=== PATIENT | male | born 1990 | race Caucasian/White ===

== ENCOUNTER 2018-06-05 17:15 | Emergency (ER) | payer MEDICAID ==
[~2018-06-05] VITALS: Ht 172.7 cm; Wt 83.0 kg
[2018-06-05 17:21] VITALS: Ht 172.7 cm; Wt 83.0 kg
[2018-06-05 18:54] LABS: BASOPHIL % 0.4 % (0-2); RED CELL DISTRIBUTION WIDTH 12.8 % (11.5-14.5)
[2018-06-05 19:10] LABS: CALCIUM 9.7 mg/dL (8.5-10.1); CARBON DIOXIDE 31.9 mmol/L (21-32); CHLORIDE SERUM 101 mmol/L (98-107); CREATININE SERUM 0.7 mg/dL (0.7-1.3); GFR1 > 60 mL/min; GLUCOSE SERUM 104 mg/dL (74-106); POTASSIUM SERUM 4.4 mmol/L (3.5-5.1); SODIUM SERUM 139 mmol/L (136-145)
[2018-06-05 19:14] LABS: ALBUMIN 4.8 g/dL (3.4-5.0); ALKALINE PHOSPHATASE 71 U/L (46-116); ALT/SGPT 53 U/L (16-63); AST/SGOT 37 U/L (15-37); BILIRUBIN TOTAL 0.4 mg/dL (0.20-1.00); LIPASE 322 IU/L (73-393)
[2018-06-05 19:18] LABS: TOTAL PROTEIN, SERUM 8.5 g/dL (6.4-8.2)
[2018-06-05 19:35] LABS: PLATELET COUNT 213 x10^3mcL (130-400)
[2018-06-05 20:34] VITALS: BP 137/84
== END 2018-06-05 20:34 | disposition home or self-care (01) ==
LOC: ED 17:15
PROVIDERS: Emergency Medicine
DX: K80.20 Calculus of gallbladder without cholecystitis without obstruction (principal); R03.0 Elevated blood-pressure reading, without diagnosis of hypertension; Z90.49 Acquired absence of other specified parts of digestive tract
CPT/HCPCS: J1885; J2405; J3490; J7030; Q0092

== ENCOUNTER 2018-10-25 16:55 | Emergency (ER) | payer MEDICAID ==
[~2018-10-25] VITALS: Ht 172.7 cm; Wt 96.6 kg
[2018-10-25 17:09] VITALS: Ht 172.7 cm; Wt 96.6 kg
[2018-10-25 18:45] VITALS: BP 120/82
== END 2018-10-25 18:45 | disposition home or self-care (01) ==
LOC: ED 16:55
DX: S29.011A Strain of muscle and tendon of front wall of thorax, initial encounter (principal); Z98.890 Other specified postprocedural states; V49.9XXA Car occupant (driver) (passenger) injured in unspecified traffic accident, initial encounter; Y93.I9 Activity, other involving external motion; Y92.413 State road as the place of occurrence of the external cause; Y99.8 Other external cause status
CPT/HCPCS: J1885

== ENCOUNTER 2018-12-08 12:22 | Emergency (ER) | payer MEDICAID ==
[~2018-12-08] VITALS: Ht 172.7 cm; Wt 80.7 kg
[2018-12-08 12:31] VITALS: Ht 172.7 cm; Wt 80.7 kg
[2018-12-08 13:34] LABS: BASOPHIL % 0.9 % (0-2); PLATELET COUNT 369 x10^3mcL (130-400); RED CELL DISTRIBUTION WIDTH 12.9 % (11.5-14.5)
[2018-12-08 13:49] LABS: microscopic required? NO
[2018-12-08 14:01] LABS: CALCIUM 9.6 mg/dL (8.5-10.1); CARBON DIOXIDE 24.7 mmol/L (21-32); CHLORIDE SERUM 104 mmol/L (98-107); CREATININE SERUM 0.8 mg/dL (0.7-1.3); GFR1 > 60 mL/min; GLUCOSE SERUM 100 mg/dL (74-106); POTASSIUM SERUM 3.8 mmol/L (3.5-5.1); SODIUM SERUM 145 mmol/L (136-145)
[2018-12-08 14:05] LABS: ALBUMIN 4.3 g/dL (3.4-5.0); ALKALINE PHOSPHATASE 72 U/L (46-116); ALT/SGPT 45 U/L (16-63); AST/SGOT 11 U/L (15-37); BILIRUBIN TOTAL 0.35 mg/dL (0.20-1.00); CHOLESTEROL 191 mg/dL (<200); HDL CHOLESTEROL 45 mg/dL (40-60); LIPASE 336 IU/L (73-393); TOTAL PROTEIN, SERUM 7.6 g/dL (6.4-8.2)
[2018-12-08 14:10] LABS: UA SPECIFIC GRAVITY 1.015 (1.005-1.035); urine erythrocyte NEGATIVE (NEGATIVE)
[2018-12-08 14:18] LABS: AMPHETAMINE QUAL UR NONE DETECTED (See below)
[2018-12-08 16:53] VITALS: BP 138/89
== END 2018-12-08 16:53 | disposition home or self-care (01) ==
LOC: ED 12:22
PROVIDERS: Emergency Medicine
DX: K80.70 Calculus of gallbladder and bile duct without cholecystitis without obstruction (principal); G40.909 Epilepsy, unspecified, not intractable, without status epilepticus; Z90.81 Acquired absence of spleen; Z98.890 Other specified postprocedural states
CPT/HCPCS: G0480; J1885; J3490; J7030; Q0092

== ENCOUNTER 2018-12-08 20:47 | Emergency (ER) | payer MEDICAID ==
[~2018-12-08] VITALS: Ht 172.7 cm; Wt 81.6 kg
[2018-12-08 21:17] VITALS: Ht 172.7 cm; Wt 81.6 kg
[2018-12-08 22:14] LABS: PLATELET COUNT 353 x10^3mcL (130-400); RED CELL DISTRIBUTION WIDTH 12.5 % (11.5-14.5)
[2018-12-08 22:15] LABS: BASOPHIL % 0 % (0-2)
[2018-12-08 22:43] LABS: CALCIUM 9.3 mg/dL (8.5-10.1); CARBON DIOXIDE 24.6 mmol/L (21-32); CHLORIDE SERUM 103 mmol/L (98-107); CREATININE SERUM 0.8 mg/dL (0.7-1.3); GFR1 > 60 mL/min; GLUCOSE SERUM 100 mg/dL (74-106); POTASSIUM SERUM 3.4 mmol/L (3.5-5.1); SODIUM SERUM 141 mmol/L (136-145)
[2018-12-08 22:48] LABS: ALBUMIN 4.2 g/dL (3.4-5.0); ALKALINE PHOSPHATASE 61 U/L (46-116); ALT/SGPT 42 U/L (16-63); AST/SGOT 11 U/L (15-37); BILIRUBIN TOTAL 0.46 mg/dL (0.20-1.00); LIPASE 249 IU/L (73-393); TOTAL PROTEIN, SERUM 7.2 g/dL (6.4-8.2)
[2018-12-09 00:46] VITALS: BP 122/68
== END 2018-12-09 01:51 | disposition short-term general hospital (02) ==
LOC: ED 20:47
PROVIDERS: Emergency Medicine
DX: K81.0 Acute cholecystitis (principal)
CPT/HCPCS: J2270; J2405; J2543; J7030

== ENCOUNTER 2018-12-12 23:37 | Emergency (ER) | payer MEDICAID ==
[~2018-12-12] VITALS: Ht 172.7 cm; Wt 81.2 kg
[2018-12-12 23:42] VITALS: Ht 172.7 cm; Wt 81.2 kg
[2018-12-13 00:45] VITALS: BP 144/91
== END 2018-12-13 00:45 | disposition home or self-care (01) ==
LOC: ED 23:37
DX: R10.84 Generalized abdominal pain (principal); R11.10 Vomiting, unspecified; Z90.49 Acquired absence of other specified parts of digestive tract; Z98.890 Other specified postprocedural states
CPT/HCPCS: J2270; Q0162

== ENCOUNTER 2019-01-09 20:36 | Emergency (ER) | payer MEDICAID ==
[~2019-01-09] VITALS: Ht 172.7 cm; Wt 82.1 kg
[2019-01-09 20:53] VITALS: BP 127/90; Ht 172.7 cm; Wt 82.1 kg
== END 2019-01-09 22:15 | disposition home or self-care (01) ==
LOC: ED 20:36
DX: Z48.01 Encounter for change or removal of surgical wound dressing (principal); Z90.89 Acquired absence of other organs

== ENCOUNTER 2019-04-23 02:11 | Emergency (ER) | payer MEDICAID ==
[~2019-04-23] VITALS: Ht 172.7 cm; Wt 86.2 kg
[2019-04-23 02:13] VITALS: Ht 172.7 cm; Wt 86.2 kg
[2019-04-23 04:40] VITALS: BP 136/87
== END 2019-04-23 04:40 | disposition home or self-care (01) ==
LOC: ED 02:11
DX: S93.491A Sprain of other ligament of right ankle, initial encounter (principal); X50.1XXA Overexertion from prolonged static or awkward postures, initial encounter; Y93.89 Activity, other specified; Y92.89 Other specified places as the place of occurrence of the external cause; Y99.8 Other external cause status
CPT/HCPCS: Q0092

== ENCOUNTER 2019-10-08 09:08 | Emergency (ER) | payer OTHER ==
[~2019-10-08] VITALS: Ht 172.7 cm; Wt 83.0 kg
[2019-10-08 09:13] VITALS: Ht 172.7 cm; Wt 83.0 kg
[2019-10-08 10:00] VITALS: BP 114/74
== END 2019-10-08 10:00 | disposition home or self-care (01) ==
LOC: ED 09:08
DX: H10.33 Unspecified acute conjunctivitis, bilateral (principal); Z98.890 Other specified postprocedural states

== ENCOUNTER 2019-11-15 17:56 | Emergency (ER) | payer OTHER | END 2019-11-15 18:50 | disposition left against medical advice (07) | LOC: ED 17:56 | DX: Z53.21 Procedure and treatment not carried out due to patient leaving prior to being seen by health care provider (principal) ==

== ENCOUNTER 2019-11-18 00:46 | Emergency (ER) | payer OTHER ==
[~2019-11-18] VITALS: Ht 172.7 cm; Wt 86.4 kg
[2019-11-18 00:53] VITALS: Ht 172.7 cm; Wt 86.4 kg
[2019-11-18 02:50] VITALS: BP 128/85
== END 2019-11-18 02:50 | disposition home or self-care (01) ==
LOC: ED 00:46
DX: S62.92XA Unspecified fracture of left hand, initial encounter for closed fracture (principal); W22.8XXA Striking against or struck by other objects, initial encounter; Y93.89 Activity, other specified; Y92.89 Other specified places as the place of occurrence of the external cause; Y99.8 Other external cause status
CPT/HCPCS: Q0092